=== PATIENT | male | born 1975 | race Caucasian/White ===

== ENCOUNTER → 2017-10-01 | Outpatient (CLI) | payer BC ==
[~2017-10-01] MED LIST: ONDA4TAB46 PO
--- NOTE | 2017-10-01 18:06 | DIAGNOSTIC IMAGING REPORT ---
R FOOT 2 VIEWS HISTORY: 41 years-old Male PAIN IN RIGHT FOOT acute right foot pain COMPARISON: None available TECHNIQUE: 2 views of the right foot FINDINGS: Mild forefoot soft tissue swelling is noted dorsally. No acute fracture, dislocation, stress injury or opaque foreign body. No significant degenerative changes. IMPRESSION: Mild soft tissue swelling without acute fracture. The above report was generated using voice recognition software. It may contain grammatical, syntax or spelling errors. Electronically signed by: Eduardo Moyer M.D. 10/01/2017 6:05 PM Dictated Date/Time: 10/01/2017 6:03 PM
== END | disposition home or self-care (01) ==
LOC: C.RAD 17:36
PROVIDERS: ATTEND Family Medicine
DX: M79.671 Pain in right foot (principal)